=== PATIENT | female | born 1975 | race Two or more races ===

== ENCOUNTER 2024-09-18 17:32 | Emergency (ER) | payer SELFPAY ==
[2024-09-18 17:37] VITALS: BP 189/93; PULSE 68; TEMP 36.7; O2SAT 100; BMI 27.3
--- NOTE | 2024-09-18 17:49 | ED_ITS ---
<Statement entered by Niels Harp MD - 09/19/24 12:30> Chart was sent to my inbox for administrative and group management purposes. I was the attending physicians working during the patients hospital course. The patient was seen and managed independently by the MLP. I did not personally see or evaluate this patient, nor was I involved in the patient medical decision making process or plans of care. Pt was dispositioned by the MLP with complete independence. I was available for consultation should the MLP request during this patients ED stay. This documentation has been reviewed and approved. HPI HPI - General Adult General Chief complaint: Headache Stated complaint: MIGRAINE Time Seen by Provider: 09/18/24 17:33 Source: patient Mode of arrival: walk-in Limitations: no limitations History of Present Illness HPI narrative: Patient is a 49-year-old female who presents to the emergency department for evaluation of a headache that began at 9 this morning. Patient is Azerbaijani- speaking and history and physical were conducted with Azerbaijani speech and language tutor service. Patient states she has a history of similar headaches and gets them every 6 months to a year. She states the pain is behind her left eye in the restorationist. She denies visual changes, fevers, recent flulike illness. She has had nausea and vomiting today. She took Tylenol at 1 PM. She has no concern for . She has no pain to the neck or peripheral paresthesias. She denies any falls or trauma. Related Data Previous Rx's ?Medication ?Instructions ?Recorded ondansetron 4 mg disintegrating 4 mg PO Q6H PRN nausea and 09/18/24 tablet vomiting #12 tabs Allergies Allergy/AdvReac Type Severity Reaction Status Date / Time ibuprofen (From Motrin) AdvReac Mild Swelling Verified 09/18/24 17:37 of the Eye Opioid HPI Opioid Management Most Recent Opioid Data: No Data to Display Review of Systems ROS Constitutional Denies: fever or chills Ears, nose, mouth, and throat Denies: throat pain or nasal congestion Cardiovascular Denies: chest pain Respiratory Denies: shortness of breath Gastrointestinal Reports: nausea and vomiting Musculoskeletal Denies: back pain or neck pain Neurological Reports: headache; Denies: numbness in extremities or weakness in extremities Hematologic/Lymphatic Denies: easy bruising or easy bleeding PFSH PFSH Social History Little interest or pleasure in doing things: not at all Feeling down, depressed, or hopeless: not at all Exam Constitutional Vital Signs, click to edit/add: Last Vital Signs Temp 98.1 F 09/18/24 17:37 Pulse 68 09/18/24 17:37 Resp 18 09/18/24 17:37 BP 159/84 H 09/18/24 18:20 Pulse Ox 100 09/18/24 17:37 O2 Del Method Room Air 09/18/24 17:37 Course Vital Signs Vital signs: Vital Signs Temperature 98.1 F 09/18/24 17:37 Pulse Rate 68 09/18/24 17:37 Respiratory Rate 18 09/18/24 17:37 Blood Pressure 189/93 H 09/18/24 17:37 Pulse Oximetry 100 09/18/24 17:37 Oxygen Delivery Method Room Air 09/18/24 17:37 Temperature 98.1 F 09/18/24 17:37 Pulse Rate 68 09/18/24 17:37 Respiratory Rate 18 09/18/24 17:37 Blood Pressure 159/84 H 09/18/24 18:20 Pulse Oximetry 100 09/18/24 17:37 Oxygen Delivery Method Room Air 09/18/24 17:37 Medical Decision Making MDM Narrative Medical decision making narrative: Patient was medicated with IV fluids, Reglan, Benadryl, Decadron. Patient is resting comfortably on reevaluation, she reports her headache is improved and she is ready for discharge. She has no focal neurodeficits. Zofran given for home. Return to the ER if symptoms change or worsen. SUPERVISED APC VISIT, PHYSICIAN ATTESTATION: Based on the medical record the care appears appropriate. ? Medical Records Medical records reviewed: Yes I reviewed the patient's medical records Discharge Plan Discharge Chief Complaint: Headache Clinical Impression: Headache Patient Disposition: Home, Self-Care Time of Disposition Decision: 19:02 Condition: Good Prescriptions / Home Meds: New ondansetron 4 mg tablet,disintegrating 4 mg PO Q6H PRN (Reason: nausea and vomiting) Qty: 12 0RF Print Language: Azerbaijani Instructions: Acute Headache (ED) Referrals: Physician,Non-Staff, MD [Primary Care Provider] - 1 week
[2024-09-18] MEDS: 0.9 % SODIUM CHLORIDE 1,000 ML 999 ML IV (18:04)
[2024-09-18] MEDS: DEXAMETHASONE SOD PHOS 10 MG/ML VIAL IV (18:04)
[2024-09-18] MEDS: METOCLOPRAMIDE HCL 10 MG/2 ML VIAL IVP (18:04)
[2024-09-18] MEDS: DIPHENHYDRAMINE HCL 50 MG/ML VIAL 25 MG IV (18:04)
[2024-09-18 18:20] VITALS: BP 159/84
== END 2024-09-18 19:46 | disposition home or self-care (01) ==
PROVIDERS: Emergency Provider Emergency Medicine
DX: R51.9 Headache, unspecified (principal)
CPT/HCPCS: 96361; 96374; 96375; 99284; J1100; J1200; J2765